=== PATIENT | male | born 1955 | race Caucasian/White ===

== ENCOUNTER → 2023-03-31 15:10 | Outpatient (REF) | payer OTHER, SELFPAY | LOC: RAD 15:10 | PROVIDERS: ATTENDING PHYSICIAN Physician Assistant Medical | DX: M25.512 Pain in left shoulder (principal); M25.511 Pain in right shoulder | CPT/HCPCS: 73030 ==

== ENCOUNTER 2023-05-27 15:58 | Outpatient (RCR) | payer OTHER, SELFPAY | END 2023-05-27 23:59 | disposition home or self-care (01) | LOC: RPT 15:58 | PROVIDERS: ATTENDING PHYSICIAN Physician Assistant Medical | DX: M25.512 Pain in left shoulder (principal); Z73.6 Limitation of activities due to disability | CPT/HCPCS: 97010; 97110; 97140; 97162 ==

== ENCOUNTER 2023-06-24 16:08 | Outpatient (RCR) | payer OTHER, SELFPAY | END 2023-06-24 23:59 | disposition home or self-care (01) | LOC: RPT 16:08 | PROVIDERS: ATTENDING PHYSICIAN Physician Assistant Medical | DX: M25.512 Pain in left shoulder (principal); Z73.6 Limitation of activities due to disability | CPT/HCPCS: 97010; 97110; 97140 ==

== ENCOUNTER → 2023-06-25 16:57 | Outpatient (REF) | payer OTHER, SELFPAY | LOC: PAVMRI 16:57 | PROVIDERS: ATTENDING PHYSICIAN Physician Assistant Medical | DX: M25.812 Other specified joint disorders, left shoulder (principal) | CPT/HCPCS: 73221 ==